=== PATIENT | male | born 1960 | race Two or more races ===

== ENCOUNTER 2025-04-08 06:34 | Day surgery (SDC) | payer MEDICARE, OTHER | END 2025-04-08 07:30 | disposition home or self-care (01) | LOC: DS 06:34 | PROVIDERS: ATTEND Dentist Oral and Maxillofacial Surgery | DX: S02.401A Maxillary fracture, unspecified side, initial encounter for closed fracture (principal); Z53.8 Procedure and treatment not carried out for other reasons; D16.5 Benign neoplasm of lower jaw bone; I10 Essential (primary) hypertension; Z86.19 Personal history of other infectious and parasitic diseases; Z79.899 Other long term (current) drug therapy; Z98.890 Other specified postprocedural states; X58.XXXA Exposure to other specified factors, initial encounter; Y93.89 Activity, other specified; Y92.89 Other specified places as the place of occurrence of the external cause; Y99.8 Other external cause status ==

== ENCOUNTER 2025-04-22 06:27 | Inpatient (IN) | payer MEDICARE, OTHER ==
[~2025-04-22] VITALS: Ht 162.6 cm; Wt 80.7 kg
[2025-04-22] VITALS (15 sets, daily range): BP systolic 122–150; BP diastolic 61–96; TEMP 98.1–98.4; O2SAT 90–97
[2025-04-22] MEDS ORDERED: LIDOCAINE 2%-EPI 1:100,000 30 ML VIAL ONE (07:01)
[2025-04-22] MEDS ORDERED: VANCOMYCIN 1 GM VIAL ONE (07:01)
[2025-04-22] MEDS ORDERED: ANESTHESIA TRAY IN PYXIS 1 EA TRAY MC ONE (07:01)
[2025-04-22] MEDS ORDERED: dexaMETHasone SOD PHOSPHATE 2 ML ONE (07:01)
[2025-04-22] MEDS ORDERED: FENTANYL PF 250MCG/5ML AMPUL ONE (07:13)
[2025-04-22] MEDS ORDERED: ROCURONIUM BROMIDE 50 MG/5 ML ONE (07:13)
[2025-04-22] MEDS ORDERED: LABETALOL HCL IV 100MG VIAL ONE (07:43)
[2025-04-22] MEDS ORDERED: SEVOFLURANE 250 ML BOTTLE IH ONE (10:17)
[2025-04-22] MEDS ORDERED: ALBUTEROL SULFATE 8 GM HFA.AER.AD ONE (11:08)
[2025-04-22 11:18] LABS: ABG BASE EXCESS -4.5 mmol/L (-2.0-3.0); ABG PCO2 73.1 mmHg (35.0-48.0); ABG PH 7.175 (7.350-7.450); ABG PO2 82.2 mmHg (83.0-108.0); ABG TOTAL HEMOGLOBIN 18.3 G/dL (13.5-17.5); COHb 0.6 % (0.5-1.5); MetHb 0.5 % (0.0-1.5)
[2025-04-22 12:42] LABS: ABG BASE EXCESS -0.9 mmol/L (-2.0-3.0); ABG OXYGEN SATURATION 96.8 % (94.0-98.0); ABG PCO2 40.4 mmHg (35.0-48.0); ABG PO2 91.9 mmHg (83.0-108.0); ABG TOTAL HEMOGLOBIN 18.2 G/dL (13.5-17.5); COHb 0.8 % (0.5-1.5); MetHb 0.5 % (0.0-1.5); O2Hb 95.5 % (94.0-97.0); SITE, ABG LEFT RADIAL
[2025-04-22] MEDS ORDERED: IV NS 0.9% 1,000 ML IV PRN (13:30)
[2025-04-22] MEDS: FUROSEMIDE 40 MG/4 ML VIAL IV ONE (13:34)
[2025-04-22] MEDS: ALBUTEROL HALF STRENGTH 1.25 MG/3 ML VIAL.NEB NEB SCH (13:36)
[2025-04-22] MEDS: IPRATROPIUM NEB FS 0.5 MG/2.5 ML AMPUL.NEB NEB SCH (13:36)
[2025-04-22] MEDS: HYDROCODONE/APAP 5/325MG TABLET PO PRN (13:36)
[2025-04-22] MEDS ORDERED: AMLO10TA4 PO (13:48)
[2025-04-22] MEDS ORDERED: QUET50TA PO (13:48)
[2025-04-22] MEDS: IV NS 0.9% 1,000 ML IV PRN (13:59)
[2025-04-22] MEDS ORDERED: ONDANSETRON HCL/PF 4 MG/2 ML VIAL IVP PRN (14:00)
[2025-04-22] MEDS ORDERED: ACETAMINOPHEN 325 MG TABLET PO PRN (14:00)
[2025-04-22] MEDS: PIPERACILLIN /TAZOBACTAM 3.375 G in IV D5W 50 ML IV SCH ×2 (14:51→17:18)
[2025-04-22] MEDS: VANCOMYCIN 1 GM in IV D5W 250ml IV SCH (14:51)
[2025-04-22 15:24] LABS: BARBITURATE, URINE NEGATIVE (NEGATIVE); BENZODIAZEPINE, URINE NEGATIVE (NEGATIVE); CANNABINOID, URINE NEGATIVE (NEGATIVE); COCCAINE, URINE NEGATIVE (NEGATIVE); OPIATE, URINE NEGATIVE (NEGATIVE); PHENCYCLIDINE SCREEN,URINE NEGATIVE (NEGATIVE)
[2025-04-22 15:26] LABS: AMPHETAMINE, URINE POSITIVE (NEGATIVE)
[2025-04-22] MEDS: HYDROMORPHONE 1 MG/1 ML DISP.SYRIN IV PRN (19:45)
[2025-04-22] MEDS: QUETIAPINE FUMARATE 25 MG TABLET PO SCH (21:07)
[2025-04-23] VITALS (13 sets, daily range): BP systolic 100–137; BP diastolic 62–87; TEMP 97.9–98.5; O2SAT 70–97
[2025-04-23] MEDS: AMLODIPINE BESYLATE 10 MG TABLET PO SCH (08:33)
== END 2025-04-23 10:57 | disposition home or self-care (01) | DRG 140 ==
LOC: DS 06:27 → ICU 12:25 → MED 04-23 08:47
PROVIDERS: ADMIT Nurse Practitioner Acute Care; ATTEND Nurse Practitioner Acute Care
PROC: 0NSR04Z Reposition Maxilla with Internal Fixation Device, Open Approach (ICD-10-PCS; 2025-04-22)
PROC: 0NST04Z Reposition Right Mandible with Internal Fixation Device, Open Approach (ICD-10-PCS; 2025-04-22)
PROC: 0NUR07Z Supplement Maxilla with Autologous Tissue Substitute, Open Approach (ICD-10-PCS; 2025-04-22)
PROC: 0NBT0ZZ Excision of Right Mandible, Open Approach (ICD-10-PCS; 2025-04-22)
PROC: 0NUT07Z Supplement Right Mandible with Autologous Tissue Substitute, Open Approach (ICD-10-PCS; 2025-04-22)
PROC: 09UR07Z Supplement Left Maxillary Sinus with Autologous Tissue Substitute, Open Approach (ICD-10-PCS; 2025-04-22)
PROC: 09UQ07Z Supplement Right Maxillary Sinus with Autologous Tissue Substitute, Open Approach (ICD-10-PCS; 2025-04-22)
PROC: 0N5R0ZZ Destruction of Maxilla, Open Approach (ICD-10-PCS; principal; 2025-04-22 07:30)
DX: S02.40DA Maxillary fracture, left side, initial encounter for closed fracture (principal); J96.01 Acute respiratory failure with hypoxia; J96.02 Acute respiratory failure with hypercapnia; T81.83XA Persistent postprocedural fistula, initial encounter; S02.69XK Fracture of mandible of other specified site, subsequent encounter for fracture with nonunion; S02.40CA Maxillary fracture, right side, initial encounter for closed fracture; X58.XXXA Exposure to other specified factors, initial encounter; Y93.9 Activity, unspecified; Y92.009 Unspecified place in unspecified non-institutional (private) residence as the place of occurrence of the external cause; M27.2 Inflammatory conditions of jaws; E66.9 Obesity, unspecified; I10 Essential (primary) hypertension; F15.11 Other stimulant abuse, in remission; I34.0 Nonrheumatic mitral (valve) insufficiency; Z68.30 Body mass index [BMI] 30.0-30.9, adult; D16.4 Benign neoplasm of bones of skull and face; J32.0 Chronic maxillary sinusitis; E87.79 Other fluid overload
CPT/HCPCS: 36415; 36600; 71045-TC; 82803-TC; 82962-TC; 87081-TC; 93970-TC; A4223; A4338; C1713; G0378; J0360; J0461; J0690; J1100; J1171; J1200; J1644; J1938; J2543; J2704; J3010; J3370; J3490; J7030; J7050; J7060